=== PATIENT | male | born 1940 | race Caucasian/White ===

== ENCOUNTER 2023-08-11 01:03 | Emergency (ER) | payer OTHER ==
[~2023-08-11] VITALS: Ht 167.6 cm; Wt 70.3 kg
[2023-08-11 04:24] VITALS: BP 110/62; TEMP 98.3; O2SAT 99
== END 2023-08-11 04:25 ==
LOC: ER 01:10
DX: Z04.3 Encounter for examination and observation following other accident (principal); R51.9 Headache, unspecified; W18.39XA Other fall on same level, initial encounter; Y93.89 Activity, other specified; Y92.89 Other specified places as the place of occurrence of the external cause; Y99.8 Other external cause status
CPT/HCPCS: 70450-TC; 72125-TC